=== PATIENT | female | born 1990 | race Native Hawaiian/Other Pacific Islander ===

== ENCOUNTER 2018-05-05 11:18 | Inpatient (IN) | payer OTHER ==
[2016-01-07 08:26] VITALS: BMI 27.6
[2018-05-05] MEDS ORDERED: Lactated Ringer's 1,000 ML IV ONE (12:19)
[2018-05-05] MEDS ORDERED: Oxytocin 30 UNIT 30 UNITS/500 ML BAG IV ONE ×2 (12:19→13:19)
[2018-05-05 13:16] LABS: BASO % 0.1 % (0.0-2.0); EOS % 0.2 % (0.0-4.0); HEMOGLOBIN 12.7 g/dL (11.0-16.0); LYMPH # 1.5 K/uL (1.0-4.3); LYMPH % 13.3 % (20.0-40.0); MEAN CELL VOLUME 92.8 fL (81.0-99.0); MEAN CORPUSCULAR HEMOGLOBIN 31.3 pg (27.0-31.0); MEAN CORPUSCULAR HGB CONC 33.7 g/dL (33.0-37.0); MEAN PLATELET VOLUME 8.8 fL (7.2-11.7); MONO # 0.7 K/uL (0.0-0.8); NEUT % 80.4 % (50.0-75.0); RBC 4.07 Mil/uL (3.80-5.20); RED CELL DISTRIBUTION WIDTH 13.5 % (11.5-14.5); WHITE BLOOD COUNT 11.2 K/uL (4.8-10.8)
[2018-05-05 13:18] LABS: SQUAMOUS EPITHIAL < 1 /hpf (0-5); URINE BILIRUBIN NEGATIVE (NEGATIVE); URINE BLOOD 2+ (NEGATIVE); URINE CLARITY Clear (Clear); URINE COLOR Yellow (YELLOW); URINE GLUCOSE (UA) NORMAL (Normal); URINE LEUKOCYTE ESTERASE NEG Leu/uL (Negative); URINE PROTEIN NEGATIVE (NEGATIVE); URINE UROBILINOGEN NORMAL mg/dL (0.2-1.0)
[2018-05-05] MEDS ORDERED: Lactated Ringer's 1,000 ML IV SCH (13:30)
[2018-05-05 13:41] LABS: ALB/GLOB RATIO 1.1 (1.0-2.1); ALBUMIN 3.5 g/dL (3.5-5.0); ALT/SGPT 20 U/L (9-52); AMYLASE 90 U/L (30-110); AST/SGOT 19 U/L (14-36); BLOOD UREA NITROGEN 8 mg/dL (7-17); CALCIUM 9.4 mg/dl (8.6-10.4); GFR AFRICAN-AMERICAN > 60; GFR NON-AFRICAN AMERICAN > 60; LIPASE 70 U/L (23-300)
--- NOTE | 2018-05-05 13:50 | OBHP ---
Datetime: 05/05/2018 12:53 IP Adm Impression: Term, intrauterine ; Active labor; Intact Membranes IP Admit Plan: Admit to unit; Initiate labor augmentation protocol Admit Comment, IP Provider: Patient seen and examned at 1216 hours This is a private patient of Dr. Rausch 28 y.o. , LMP 08/15/17, YSABEL 05/22/18, EGA 37w 4d, presents c/o onset vaginal cspotting at 0 730 hours followed by Ctx; now occurring every 2-3 minutes, pain scale 6/10. Had visit with PMD: at 0830 hours found to be 5 cm. Currently, reports AFM; denies further vaginal spotting; denies LOF. care: Dr. Rausch noted for Hep B (+) - chronic. No other issues P Ob: 2016, , male, 6lb 13oz, [facility], no complications. 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 No h/o STIs, abnormal Pap PMH: Hep B, diagnosed 2014. No sequellae PSH: D_C NKDA Meds: PNV - QD Soc Hx: denies tobacco, illicit drug or EtOH use. 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 Fam Hx: Mother alive 56. Father alive 61. Both, no med issues P.E.: as above. Small, in mild discomfort with contractions. Awake, alert, oriented to time, perso n and place. Pleasant and cooperative. present Assessment: 28 y.o. P1011, 37w 4d, active labor. GBS (-). Hep B from 2014, chronic status. Categor y 1 tracing. D/W patient the following: pitocin, epidural, AROM. Patient expressed an understanding and agrees. No questions offered. Patient is clincally stable. Plan: 1) Admit 2) NPO 3) IVFs 4) Continuous EFM 5) Admission labs, including hepatic panel 6) Epidural 7) pitocin 8) Notify peds 9) Anticipate vaginal delivery - as per and discussed with Dr. Rausch Pelvic Type - PN: Adequate Extremities - PN: Normal Abdomen - PN: Normal Back - PN: Normal Breast - PN: Normal Lungs - PN: Normal Heart - PN: Normal Thyroid - PN: Not Done Neurologic - PN: Normal HEENT - PN: Normal General - PN: Normal FHR - Baseline A Provider: 150 Contraction Comments Provider: 3-4 Comments, ACOG Physical Exam: Abdomen: Gravid. Firm with contractions. Fundal height 37 cm All other systems reviewed and are negative Gestation - Est Wks by US: 37w 4d IP Hx Assessment: The History has been Reviewed and is Current EGA AdmitDate IP: 37.4 Vital Signs Provider: Reviewed; Within Normal Limits IP Indication for Induction: Not Applicable IP Chief Complaint: Uterine contractions NICHD Variability Prov Fetus A: Moderate 6-25bpm NICHD Accel Fetus A IP Provider: 15X15 FHR Category Provider Fetus A: Category I NICHD Decel Fetus A IP Provider: None Dilatation, Provider: 6 Effacement, Provider: 60 Station, Provider: -3 Genitourinary Exam: Normal DTRs - PN: Not Done
[2018-05-05] MEDS ORDERED: Bupivacaine HCl/FentaNYL Cit 100 ML EPI ONE (15:47)
[2018-05-05] MEDS ORDERED: Benzocaine/Menthol 20%-0.5% Topical Spray (60 ml) TOP PRN (16:19)
--- NOTE | 2018-05-05 16:38 | OBDS ---
DELIVERY PERSONNEL Nurse Computing Tutor Certified: N/A Delivery Doctor: Manuel Rausch MD Anesthesiologist: James Guerra MD Highway Construction Inspector: N/A MATERNAL INFORMATION Delivery Anesthesia: Epidural Provider Comments: baby deloiverd in marvin. cord reduced end clean 9/9 cord blod send no com LABOR SUMMARY EDC: 05/22/2018 00:00 No. Babies in Womb: 1 Attempted: No Labor Anesthesia: Epidural LABOR INFORMATION Reason for Induction: Not Applicable Reason for Induction Other: N/A Onset of Labor: 05/05/2018 07:30 Complete Dilatation: 05/05/2018 15:58 Other Ripening Agents: N/A Oxytocin: Augmentation Group B Beta Strep: Negative Antibiotics # of Doses: N/A Antibiotics Time of Last Dose: N/A Steroids Given: None Reason Steroids Not Administered: Not Applicable Other Reason Not Administered: N/A MEMBRANES Membranes Rupture Method: Artificial Rupture of Membranes: 05/05/2018 14:39 Length of Rupture (hrs): 0.83 Amniotic Fluid Color: Clear Amniotic Fluid Amount: Small Amniotic Fluid Odor: Normal STAGES OF LABOR Stage 1 hrs: 8 Stage 1 min: 28 Stage 2 hrs: 0 Stage 2 min: -29 Stage 3 hrs: 1 Stage 3 min: 2 Total Time in Labor hrs: 9 Total Time in Labor min: 1 BABY A INFORMATION Infant Delivery Date/Time: 05/05/2018 15:29 Method of Delivery: Vaginal Born in Route : No : N/A Forceps: N/A Vacuum Extraction: N/A Shoulder Dystocia : No SHOULDER DYSTOCIA BABY A Delivery Date/Time: 05/05/2018 15:29 PRESENTATION/POSITION BABY A Presentation: Cephalic Cephalic Presentation: Vertex Vertex Position: Left Occipital Anterior Breech Presentation: N/A PLACENTA INFORMATION BABY A Placenta Delivery Time : 05/05/2018 16:31 INFORMATION BABY A Gestational Age at Delivery: 37.4 Gestational Status: Term Outcome : Liveborn Sex: Male IDENTIFICATION/MEDS BABY A ID Band Number: [id number] Sensor Number: [id number] WEIGHT/LENGTH BABY A Birthweight (gms): 2815 Weight (lb): 6 Infant Weight (oz): 3 CORD INFORMATION BABY A Nuchal Cord : Around Neck x1, Loose Cord Blood Taken: Yes
--- NOTE | 2018-05-05 16:38 | OBADHP ---
Datetime: 05/05/2018 12:53 EGA AdmitDate IP: 37.4
--- NOTE | 2018-05-05 16:40 | OBPN ---
Datetime: 05/05/2018 16:36 IP Progress Impression: Normal progression of labor IP Procedures: Sterile Vag Exam Contraction Comments Provider: q1-3 FHR - Baseline A Provider: 120 IP Progress Note Comment: pt was sen at bed side ve fd100/-2 plan anticipate NICHD Accel Fetus A IP Provider: 15X15 FHR Category Provider Fetus A: Category I NICHD Variability Prov Fetus A: Moderate 6-25bpm Dilatation, Provider: 10 Effacement, Provider: 100 Station, Provider: 0 Datetime: 05/05/2018 12:53 Gestation - Est Wks by US: 37w 4d Vital Signs Provider: Reviewed; Within Normal Limits NICHD Decel Fetus A IP Provider: None
[2018-05-06 07:35] LABS: BASO % 0.1 % (0.0-2.0); EOS # 0.1 K/uL (0.0-0.7); EOS % 0.3 % (0.0-4.0); HEMOGLOBIN 12.9 g/dL (11.0-16.0); LYMPH # 2.3 K/uL (1.0-4.3); LYMPH % 11.9 % (20.0-40.0); MEAN CELL VOLUME 92.3 fL (81.0-99.0); MEAN CORPUSCULAR HEMOGLOBIN 31.5 pg (27.0-31.0); MEAN CORPUSCULAR HGB CONC 34.1 g/dL (33.0-37.0); MONO # 1.1 K/uL (0.0-0.8); MONO % 5.4 % (0.0-10.0); NEUT % 82.3 % (50.0-75.0); RBC 4.1 Mil/uL (3.80-5.20); RED CELL DISTRIBUTION WIDTH 13.4 % (11.5-14.5)
[2018-05-06 07:36] LABS: WHITE BLOOD COUNT 19.5 K/uL (4.8-10.8)
[2018-05-06] MEDS: Oxycodone/Acetaminophen 5/325 mg Tab PO PRN ×2 (07:51→14:58)
[2018-05-07] MEDS: Oxycodone/Acetaminophen 5/325 mg Tab PO PRN (07:27)
[2018-05-07] MEDS ORDERED: Tdap Vaccine 0.5 ml Vial (10-64 yrs) IM ONE (08:00)
--- NOTE | 2018-05-07 13:17 | OBPPN ---
Datetime: 05/07/2018 13:11 PP Pain Prov: Within normal limits PP Nausea Prov: Denies PP Flatus Prov: Yes PP Abdomen/Uterus Prov: Normal PP Lochia Prov: Normal PP Extremities Prov: Normal PP Comments Phys Exam Prov: fudus below um'ext no edema,no cak PP Impression Prov: Normal progression PP Plan Prov: Continue present management PP Progress Note Prov: pt was seen at bed side, paijn under control,no n/v, tlerating deit,voiding,m in loc ppd#2 s/p repeat cbc cont pp care encourage amb f/u Vital Signs Provider PP: Reviewed; Within Normal Limits
[2018-05-07 13:43] LABS: BASO % 0.2 % (0.0-2.0); EOS # 0.1 K/uL (0.0-0.7); EOS % 0.7 % (0.0-4.0); HEMOGLOBIN 12.1 g/dL (11.0-16.0); LYMPH # 2.5 K/uL (1.0-4.3); LYMPH % 12.5 % (20.0-40.0); MEAN CELL VOLUME 92.8 fL (81.0-99.0); MEAN CORPUSCULAR HEMOGLOBIN 32.4 pg (27.0-31.0); MEAN CORPUSCULAR HGB CONC 34.9 g/dL (33.0-37.0); MEAN PLATELET VOLUME 8.2 fL (7.2-11.7); MONO # 1.4 K/uL (0.0-0.8); NEUT # 15.7 K/uL (1.8-7.0); NEUT % 79.6 % (50.0-75.0); NRBC % 0.1 % (0.0-2.0); RBC 3.74 Mil/uL (3.80-5.20); RED CELL DISTRIBUTION WIDTH 13.8 % (11.5-14.5); WHITE BLOOD COUNT 19.8 K/uL (4.8-10.8)
[2018-05-07] MEDS ORDERED: Amoxicillin-Clav 875-125 mg Tab PO ONE (15:00)
--- NOTE | 2018-05-07 16:35 | US ---
Date of service: 05/07/2018 HISTORY: pelvic pain. status. COMPARISON: None available. TECHNIQUE: Transabdominal only FINDINGS: UTERUS: Measures 17.7 x 10.2 x 11.0 cm. Mildly enlarged. Heterogeneous echotexture. No mass. ENDOMETRIUM: Measures 20 mm in diameter. Heterogeneous echogenicity. No endometrial fluid appreciated. CERVIX: No cervical abnormality identified. RIGHT OVARY: Measures 3.2 x 1.4 x 2.2 cm. No solid mass. Normal flow. LEFT OVARY: Measures 4.2 x 1.5 x 3.5 cm. No solid mass. Normal flow. FREE FLUID: No significant free fluid noted. OTHER FINDINGS: None. IMPRESSION: Enlarged uterus. Heterogeneous thickened endometrium without evidence of retained products of conception.
[2018-05-07 20:41] VITALS: O2SAT 100
[2018-05-07] MEDS: Amoxicillin-Clav 875-125 mg Tab PO SCH (21:27)
[2018-05-08] MEDS: Oxycodone/Acetaminophen 5/325 mg Tab PO PRN (01:16)
--- NOTE | 2018-05-08 06:40 | OBDCSUM ---
Datetime: 05/08/2018 06:38 Discharged to, Provider: Home Follow up at, Provider: 2wwe Discharge Diagnosis, Provider: Term Delivered Follow up in weeks, Provider: dr steward Disch Activity Restrictions: No sexual activity; Nothing in vagina - [place], tampons, douche Discharge Comment, Provider: tx home no sex augmentin motrionprb n f/i Discharge Diagnosis Prov Other: 37 teller
--- NOTE | 2018-05-08 06:40 | OBPPN ---
Datetime: 05/08/2018 06:37 PP Pain Prov: Within normal limits PP Nausea Prov: Denies PP Flatus Prov: Yes PP Lochia Prov: Normal PP Extremities Prov: Normal PP Impression Prov: Normal progression PP Plan Prov: Discharge PP Progress Note Prov: pt was seen at bed side, pain under control,no n/v, toleratimg dei,voiding,mi n lochia, flatus+ ppd#3 s/p /pp fever dc home no sex augmentin motrionprb n f/i Vital Signs Provider PP: Reviewed; Within Normal Limits
[2018-05-08 07:58] LABS: BASO % 0.3 % (0.0-2.0); EOS # 0.2 K/uL (0.0-0.7); EOS % 1.5 % (0.0-4.0); HEMOGLOBIN 12.8 g/dL (11.0-16.0); LYMPH % 14.8 % (20.0-40.0); MEAN CELL VOLUME 93.8 fL (81.0-99.0); MEAN CORPUSCULAR HEMOGLOBIN 32.1 pg (27.0-31.0); MEAN CORPUSCULAR HGB CONC 34.3 g/dL (33.0-37.0); MEAN PLATELET VOLUME 8.3 fL (7.2-11.7); MONO % 7.4 % (0.0-10.0); NEUT # 10.4 K/uL (1.8-7.0); RBC 3.97 Mil/uL (3.80-5.20); RED CELL DISTRIBUTION WIDTH 13.6 % (11.5-14.5); WHITE BLOOD COUNT 13.6 K/uL (4.8-10.8)
[2018-05-08 08:56] VITALS: BP 107/68; PULSE 90; RESP 18; TEMP 97.5
[2018-05-08] MEDS: Amoxicillin-Clav 875-125 mg Tab PO SCH (09:30)
== END 2018-05-08 14:00 | disposition home or self-care (01) | DRG 775 ==
LOC: C.EROB 11:18 → C.4D 12:19 → C.4M 18:50
PROVIDERS: ADMIT Obstetrics & Gynecology; ATTEND Obstetrics & Gynecology
PROC: 10E0XZZ Delivery of Products of Conception, External Approach (ICD-10-PCS; principal; 2018-05-05)
DX: O69.81X0 Labor and delivery complicated by cord around neck, without compression, not applicable or unspecified (principal); Z3A.37 37 weeks gestation of pregnancy; Z37.0 Single live birth